=== PATIENT | male | born 1980 | race Caucasian/White ===

== ENCOUNTER 2025-02-12 11:36 | Emergency (ER) | payer SELFPAY ==
[~2025-02-12] VITALS: Ht 180.3 cm; Wt 117.0 kg
[2025-02-12 11:43] VITALS: O2SAT 99
[2025-02-12] MEDS: ACETAMINOPHEN 325MG TABLET PO ONE (12:23)
[2025-02-12] MEDS ORDERED: TOPUD MT (14:41)
[2025-02-12 14:48] VITALS: BP 139/65; PULSE 94; RESP 16; TEMP 36.8; O2SAT 99
== END 2025-02-12 14:52 | disposition home or self-care (01) ==
LOC: ER 11:36
DX: M19.012 Primary osteoarthritis, left shoulder (principal); M47.816 Spondylosis without myelopathy or radiculopathy, lumbar region; Z88.0 Allergy status to penicillin; V89.2XXA Person injured in unspecified motor-vehicle accident, traffic, initial encounter; Y93.89 Activity, other specified; Y92.89 Other specified places as the place of occurrence of the external cause; Y99.8 Other external cause status
CPT/HCPCS: 72100; 73030; 73060; 73090; 99284